=== PATIENT | female | born 1945 | race Caucasian/White ===

== ENCOUNTER 2017-10-23 11:10 | Emergency (ER) | payer BC, MEDICARE ==
[2017-10-23 12:10] VITALS: BP 115/83
--- NOTE | 2017-10-23 12:50 | UC ---
UC General HPI - HPI Summary HPI Summary: Patient presents complaining of "UTI". She states it began on the third of this month. She describes it as a combination of frequency, urgency and burning with urination. She also notes some hesitation when she discussed empty her bladder. She states that she had a UTI once in the past and felt same. She denies any associated fever. She did report some lower abdominal pressure this morning but that is since resolved since she urinated and moved her bowels. - History of Current Complaint Chief Complaint: UCGU Stated Complaint: URINARY COMPLAINT Time Seen by Provider: 10/23/17 12:44 Hx Obtained From: Patient Onset/Duration: Gradual Onset Timing: Constant Pain Intensity: 8 Aggravating: Nothing Alleviating: Nothing Associated Signs & Symptoms: Positive: Dysuria. Negative: Abdominal Pain, Fever - Allergy/Home Medications Allergies/Adverse Reactions: Allergies Allergy/AdvReac Type Severity Reaction Status Date / Time codeine Allergy Itching Verified 10/23/17 12:00 lisinopril Allergy Tachycardia Verified 10/23/17 12:00 Home Medications: Home Medications Esomeprazole Magnesium [Nexium 24Hr] 20 mg PO DAILY 10/23/17 [History Confirmed 10/23/17] Hydrochlorothiazide TAB* [Hydrodiuril TAB*] 12.5 mg QAM 10/23/17 [History Confirmed 10/23/17] Pravastatin Sodium 40 mg PO QPM 10/23/17 [History Confirmed 10/23/17] Venlafaxine EXT RELEASE CAP* [Effexor Xr CAP*] 1 tab DAILY 10/23/17 [History Confirmed 10/23/17] PMH/Surg Hx/FS Hx/Imm Hx Endocrine History: Diabetes - Borderline, PCP is following., Dyslipidemia Cardiovascular History: Hypertension GI/ History: Gastroesophageal Reflux Other GI/ History: UTI - Surgical History Surgical History: None - Social History Alcohol Use: None Substance Use Type: None Smoking Status (MU): Never Smoked Tobacco Review of Systems Constitutional: Negative Skin: Negative Eyes: Negative ENT: Negative Respiratory: Negative Cardiovascular: Negative Gastrointestinal: Negative Genitourinary: Dysuria, Frequency, Urgency Motor: Negative Neurovascular: Negative Musculoskeletal: Negative Neurological: Negative Psychological: Negative Is Patient Immunocompromised?: No All Other Systems Reviewed And Are Negative: Yes Physical Exam Triage Information Reviewed: Yes Appearance: Well-Appearing Vital Signs: Initial Vital Signs Temp 97 F 10/23/17 12:00 Pulse 89 10/23/17 12:00 Resp 16 10/23/17 12:00 BP 115/83 10/23/17 12:00 Pulse Ox 96 10/23/17 12:00 Vital Signs Reviewed: Yes Eyes: Positive: Conjunctiva Clear ENT: Positive: Normal ENT inspection Neck: Positive: Supple, Nontender, No Lymphadenopathy Respiratory: Positive: Lungs clear, Normal breath sounds Cardiovascular: Positive: RRR, No Murmur Abdomen Description: Positive: Nontender, No Organomegaly, Soft. Negative: CVA Tenderness (R), CVA Tenderness (L), Distended, Guarding Bowel Sounds: Positive: Present Musculoskeletal: Positive: ROM Intact Neurological: Positive: Alert Psychological: Positive: Normal Response To Family Skin Exam: Normal Diagnostics - Laboratory Diagnostic Studies Completed/Ordered: u/a= 2+ protein and blood. 3+ leukocytes. Trace glucose and ketones. Urine culture pending. Course/Dx - Course Course Of Treatment: Nontoxic. No acute abdomen. Urine dip consistent with UTI and culture pending. - Differential Dx - Multi-Symptom Provider Diagnoses: UTI Discharge - Sign-Out/Discharge Documenting (check all that apply): Discharge/Admit/Transfer - Discharge Plan Condition: Stable Disposition: HOME Prescriptions: Cephalexin CAP* [Keflex CAP*] 500 mg PO BID #14 cap Patient Education Materials: Urinary Tract Infection in Women (DC) Referrals: Clayton Billings MD [Primary Care Provider] - 7 Days - Billing Disposition and Condition Condition: STABLE Disposition: Home
== END 2017-10-23 12:59 | disposition home or self-care (01) ==
LOC: UCCORT 11:10
DX: N39.0 Urinary tract infection, site not specified (principal); B96.20 Unspecified Escherichia coli [E. coli] as the cause of diseases classified elsewhere; Z88.5 Allergy status to narcotic agent; Z88.8 Allergy status to other drugs, medicaments and biological substances; I10 Essential (primary) hypertension; K21.9 Gastro-esophageal reflux disease without esophagitis; E78.5 Hyperlipidemia, unspecified
CPT/HCPCS: 81003; 87077; 87086; 87186; 99212; G0463

== ENCOUNTER 2019-04-25 12:14 | Emergency (ER) | payer MEDICARE ==
--- OUTSIDE RECORDS SUMMARY | 2019-04-25 12:22 | XMS REPORT | Continuity of Care Document ---
:1945 External Reference #:[id number] Author Name Anthony Burkett MD (transmitted by agent of provider Leah Bonner) Address [address] [place] [address] Care Team Providers Name Role Phone Clayton Billings MD Care Team Information Viticulturist [phone] Problems Active Problems Provider Date Adult health examination Lauren Manzo PA-C Onset: 01/17/2015 Depressive disorder Lauren Manzo PA-C Onset: 01/17/2015 Essential hypertension Lauren Manzo PA-C Onset: 11/29/2014 Congestive heart failure Lauren Manzo PA-C Onset: 11/29/2014 Gastroesophageal reflux disease Lauren Manzo PA-C Onset: 11/29/2014 Non-toxic uninodular goiter Lauren Manzo PA-C Onset: 11/29/2014 Anxiety state Lauren Manzo PA-C Onset: 11/29/2014 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 Mixed hyperlipidemia Lauren Manzo PA-C Onset: 11/29/2014 Diverticular disease of colon Lauren Manzo PA-C Onset: 11/29/2014 Allergic asthma without status Lauren Manzo PA-C Onset: 11/29/2014 asthmaticus Malaise and fatigue Lauren Manzo PA-C Onset: 11/29/2014 Vitamin deficiency Lauren Manzo PA-C Onset: 11/29/2014 Social History Type Date Description Comments Sex Unknown ETOH Use Denies alcohol use Tobacco Use Start: Unknown End: Patient is a former smoker almost 50 years ago , Unknown stopped since then Allergies, Adverse Reactions, Alerts Active Allergies Reaction Severity Comments Date Penicillin Rash Moderate 11/29/2014 Codeine Itching Moderate 11/29/2014 Sulfa Drugs Anaphylaxis Severe 11/29/2014 Lisinopril Tacycardia Severe 11/29/2014 Medications Active Medications SIG Qnty Indications Ordering Date Provider Vitamin D 1 PO daily 180tabs E56.8 Felipe Peck, 11/29/2014 (Cholecalciferol) 1000Unit Tablets Aspir-81 1 by mouth 90tabs Felipe Peck, 81mg Tablets DR every day Nexium 1 by mouth 90caps Felipe Peck, 40mg Capsules DR every day (katty) Pravastatin Sodium 1 by mouth 90tabs Felipe Peck, 40mg Tablets every day Venlafaxine HCL take one 180tabs Maxi Duenas, 37.5mg Tablets tablet by DO mouth twice day Hydrochlorothiazide 1 by mouth Unknown 12.5mg every day Capsules Immunizations Description No Information Available Vital Signs Date Vital Result Comment 03/03/2019 9:29am Weight 154.00 lb Height 63 inches 5'3" BMI (Body Mass Index) 27.3 kg/m2 BP Systolic 141 mmHg BP Diastolic 80 mmHg Heart Rate 79 /min O2 % BldC Oximetry 91 % Body Temperature 97.6 F Pain Level 0 09/14/2018 1:28pm Weight 159.00 lb Height 63 inches 5'3" BMI (Body Mass Index) 28.2 kg/m2 BP Systolic 144 mmHg BP Diastolic 81 mmHg Heart Rate 85 /min O2 % BldC Oximetry 92 % Body Temperature 98.4 F Pain Level 0 Results Description No Information Available Procedures Date Code Description Status 02/23/2019 [id number] Mammogram Completed 09/08/2018 [id number] Mammogram Completed 02/04/2018 [id number] Mammogram Completed 02/07/2016 [id number] Mammogram Completed 01/09/2015 [id number] Mammogram Completed 08/30/2013 [id number] Mammogram Completed 04/02/2012 [id number] Mammogram Completed 10/03/2010 [id number] Mammogram Completed 10/02/2009 [id number] Mammogram Completed 12/06/2007 [id number] Mammogram Completed 12/02/2006 [id number] Mammogram Completed Medical Devices Description No Information Available Encounters Type Date Location Provider Dx Diagnosis Office Visit 09/14/2018 Main Office Anthony Burkett MD R92.8 Oth abn and 1:30p inconclusive findings on dx imaging of breast Assessments Date Code Description Provider 09/14/2018 R92.8 Other abnormal and inconclusive findings on Anthony Burkett MD diagnostic imagi Plan of Treatment 09/14/2018 - Anthony Burkett, MDR92.8 Other abnormal and inconclusive findings on diagnostic imagiComments:1) The assessment and radiology report were reviewed and discussed with her.2) As recommended, will arrange for bilateral screening mammography and ultrasound exam in 6 months .Follow up:RTO in 6 months after screening mammography and ultrasound exam Functional Status Description No Information Available Mental Status Description No Information Available Referrals Description No Information Available
[2019-04-25 12:54] VITALS: BP 156/86
--- NOTE | 2019-04-25 13:16 | UC ---
Throat Pain/Nasal Azar HPI - HPI Summary HPI Summary: 73-year-old female who has had a sore throat "for weeks". She states that she is normally mildly short of breath but over the past couple of weeks she has developed a"phlegmy" cough which has caused her to be a little more short of breath than normal. He denies any fever or chills. She has postnasal drainage only at night. - History of Current Complaint Chief Complaint: UCGeneralIllness Stated Complaint: ST Time Seen by Provider: 04/25/19 13:08 Hx Obtained From: Patient ?: No Onset/Duration: Gradual Onset Severity: Mild Pain Intensity: 2 Cough: Productive - She describes as "phlegmy". Associated Signs & Symptoms: Positive: Nasal Discharge - No particular color to nasal discharge. - Allergies/Home Medications Allergies/Adverse Reactions: Allergies Allergy/AdvReac Type Severity Reaction Status Date / Time codeine Allergy Itching Verified 04/25/19 12:49 lisinopril Allergy Tachycardia Verified 04/25/19 12:49 Home Medications: Home Medications Cholecalciferol TAB* [Vitamin D TAB*] 2,000 units PO DAILY 04/25/19 [History Confirmed 04/25/19] PMH/Surg Hx/FS Hx/Imm Hx Previously Healthy: Yes Endocrine History: Dyslipidemia Cardiovascular History: Hypertension GI/ History: Gastroesophageal Reflux Psychological History: Depression - Surgical History Surgical History: None - Family History Known Family History: Positive: Non-Contributory - Social History Occupation: Retired Alcohol Use: None Substance Use Type: None Smoking Status (MU): Never Smoked Tobacco Review of Systems All Other Systems Reviewed And Are Negative: Yes ENT: Positive: Sore Throat, Nasal Discharge Respiratory: Positive: Cough Is Patient Immunocompromised?: No Physical Exam Triage Information Reviewed: Yes Appearance: Well-Appearing, No Pain Distress, Well-Nourished Vital Signs: Initial Vital Signs Temp 98.6 F 04/25/19 12:46 Pulse 90 04/25/19 12:46 Resp 16 04/25/19 12:46 BP 156/86 04/25/19 12:46 Pulse Ox 96 04/25/19 12:46 Vital Signs Reviewed: Yes Eyes: Positive: Conjunctiva Clear ENT: Positive: Pharynx normal, Nasal drainage - Clear nasal coryza., TMs normal , Uvula midline. Negative: Sinus tenderness Neck: Positive: Supple, Nontender, No Lymphadenopathy Respiratory: Positive: No respiratory distress, No accessory muscle use, Rhonchi - Mild rhonchi and crackles right upper lobe posteriorly. Cardiovascular: Positive: RRR, No Murmur, Pulses Normal, Brisk Capillary Refill Musculoskeletal Exam: Normal Neurological Exam: Normal Psychological Exam: Normal Skin Exam: Normal Throat Pain/Nasal Course/Dx - Course Course Of Treatment: Chest x-ray:FINDINGS: CARDIOMEDIASTINAL SILHOUETTE: The cardiomediastinal silhouette is normal. GINA: The gina are normal. PLEURA: The costophrenic angles are sharp. No pleural abnormalities are noted. LUNG PARENCHYMA: There is hyperinflation with flattening of the diaphragm and expansion of the AP diameter of the chest. ABDOMEN: The upper abdomen is clear. There is no subphrenic gas. BONES AND SOFT TISSUES: Degenerative changes are noted along the spine. OTHER: None. IMPRESSION: HYPERINFLATION, CONSISTENT WITH COPD. NO ACTIVE CARDIOPULMONARY DISEASE. Rapid strep test: Negative - Differential Dx/Diagnosis Provider Diagnosis: Pharyngitis Discharge ED - Sign-Out/Discharge Documenting (check all that apply): Patient Departure All imaging exams completed and their final reports reviewed: Yes - Discharge Plan Condition: Good Disposition: HOME Referrals: Leonor Schulz MD [Primary Care Provider] - - Billing Disposition and Condition Condition: GOOD Disposition: Home
== END 2019-04-25 13:40 | disposition home or self-care (01) ==
LOC: UCCORT 12:14
DX: J02.9 Acute pharyngitis, unspecified (principal); R91.8 Other nonspecific abnormal finding of lung field; R05 Cough; I10 Essential (primary) hypertension; Z88.5 Allergy status to narcotic agent; Z88.8 Allergy status to other drugs, medicaments and biological substances
CPT/HCPCS: 71046; 87651; 99211; G0463